=== PATIENT | female | born 1995 | race Caucasian/White ===

== ENCOUNTER 2020-05-11 20:04 | Emergency (ER) | payer MEDICAID ==
[~2020-05-11] VITALS: Ht 149.9 cm; Wt 57.0 kg
[2020-05-11] MEDS ORDERED: SODIUM CHLORIDE 0.9% 1,000 ML IV ONE (21:04)
[2020-05-11 21:30] LABS: CHLORIDE 113 mEq/L (98-107)
[2020-05-11 21:36] LABS: ETHANOL BLOOD < 10 mg/dL
[2020-05-11 21:39] LABS: HCG SCREEN NEGATIVE
[2020-05-11 21:40] LABS: CREATINE KINASE 254 IU/L (26-192)
[2020-05-11 21:41] LABS: BASOPHILS % 0.5 % (0.0-2.0); EOSINOPHILS % 0.8 % (0.0-5.0); HEMOGLOBIN. 16.2 g/dL (12.0-16.0); LYMPHOCYTES % 34.7 % (20.0-50.0); MEAN CORPUSCULAR HEMOGLOBIN 31.2 pg (28.0-32.0); MEAN CORPUSCULAR VOLUME 90.6 fL (81.0-99.0); MONOCYTES % 5.7 % (2.0-8.0); NEUTROPHILS % 58.3 % (40.0-76.0); RED BLOOD CELL COUNT 5.18 mill/uL (4.2-5.4); RED CELL DISTRIBUTION WIDTH 14.3 % (11.6-14.6)
[2020-05-11 22:15] LABS: CLARITY URINE CLOUDY (CLEAR); COLOR URINE DK YELLOW (YELLOW); KETONES URINE TRACE (NEGATIVE); LEUKOCYTE ESTERASE URINE 2+ (NEGATIVE); NITRITE URINE NEGATIVE (NEGATIVE); OCCULT BLOOD URINE NEGATIVE (NEGATIVE); PROTEIN URINE TRACE (NEGATIVE); SPECIFIC GRAVITY URINE 1.036 (1.005-1.030)
[2020-05-11 22:25] LABS: *BARBITURATES SCREEN URINE NEGATIVE (NEGATIVE)
[2020-05-11 22:26] LABS: *AMPHETAMINES SCREEN URINE PRESUMTIVE POSITIVE (NEGATIVE); *BENZODIAZEPINES SCREEN URINE PRESUMTIVE POSITIVE (NEGATIVE); *COCAINE SCREEN URINE PRESUMTIVE POSITIVE (NEGATIVE); METHADONE URINE SCREEN NEGATIVE (NEGATIVE); OPIATES URINE SCREEN NEGATIVE (NEGATIVE)
[2020-05-11 22:27] LABS: CANNABINOID URINE SCREEN PRESUMTIVE POSITIVE (NEGATIVE); PHENCYCLIDINE URINE SCREEN PRESUMTIVE POSITIVE (NEGATIVE)
[2020-05-11 22:36] LABS: MEAN PLATELET VOLUME 8.5 fl (7.4-10.4); PLATELET 286 x1000/uL (130-400); PLATELET ESTIMATE NORMAL
[2020-05-12 03:30] VITALS: BP 144/98
== END 2020-05-12 07:03 | disposition home or self-care (01) ==
LOC: ER 20:04
DX: R45.851 Suicidal ideations (principal)
CPT/HCPCS: 80053; 80305; 80307; 80320; 81003; 82140; 82550; 83605; 84443; 84703; 85025; 99283; J7030; G0480

== ENCOUNTER 2021-06-05 03:54 | Emergency (ER) | payer MEDICAID ==
[~2021-06-05] VITALS: Ht 162.6 cm; Wt 89.0 kg
[2021-06-05] MEDS ORDERED: LORAZEPAM 1MG TABLET PO ONE (04:30)
[2021-06-05 06:05] VITALS: BP 145/95
== END 2021-06-05 06:16 | disposition home or self-care (01) ==
LOC: ER 03:54
DX: F14.10 Cocaine abuse, uncomplicated (principal); F15.10 Other stimulant abuse, uncomplicated
CPT/HCPCS: 82962; 99283

== ENCOUNTER 2022-05-31 00:57 | Emergency (ER) | payer MEDICAID ==
[~2022-05-31] VITALS: Ht 149.9 cm; Wt 85.0 kg
[2022-05-31 01:30] VITALS: BP 113/58
[2022-05-31] MEDS ORDERED: DIPH103G TP (04:05)
== END 2022-05-31 04:10 | disposition home or self-care (01) ==
LOC: ER 00:57
DX: S80.861A Insect bite (nonvenomous), right lower leg, initial encounter (principal); W57.XXXA Bitten or stung by nonvenomous insect and other nonvenomous arthropods, initial encounter; Y93.89 Activity, other specified; Y92.89 Other specified places as the place of occurrence of the external cause; Y99.8 Other external cause status; F15.10 Other stimulant abuse, uncomplicated
CPT/HCPCS: 99281